=== PATIENT | female | born 1960 | race Two or more races ===

== ENCOUNTER 2024-03-07 08:12 | Outpatient (AMB) | payer MEDICAID, SELFPAY ==
[2024-03-07 08:28] VITALS: BP 168/85; PULSE 86; RESP 18; TEMP 36.7; O2SAT 96; BMI 31.5
--- NOTE | 2024-03-07 08:28 | PD.ORTHCLVIS ---
Vital signs 03/07/24 08:28 Height 1.6 m Height Method Stated Weight 80.796 kg Weight Measurement Method Standing Scale BMI 31.5 BP 168/85 H Blood Pressure Source Automatic Cuff Blood Pressure Location Right Upper Arm Position Sitting Respiration 18 Pulse 86 Pulse Source Monitor Temp 98.1 F Temp Source Oral Pulse Oximetry (%) 96 Oxygen Delivery Method Room Air Med/Allergies Allergies & Medications Allergies No Known Allergies Allergy (Mild, Uncoded 02/09/09 16:12) Subjective Visit Visit for: new patient Immunization / Flu Flu Vaccine in the Last 12 Months: No Flu Vaccine Exclusion Criteria: No Exclusion Criteria History of Present Illness Chief complaint: PT HERE FOR LEFT KNEE PAIN Shari is a pleasant 63-year-old female presents today for evaluation of her left knee. She has had pain for 4 months. She reports that she was found to have a Ibrahim's cyst as well as medial lateral meniscus tears. She tried physical therapy and this helped quite a bit. She was here because someone tried to drain her Ibrahim's cyst and failed. 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 Exam Exam Patient is in no acute distress and is cooperative with the examination today. Breathing is nonlabored. Patient has a normal mood and affect. Bilateral extremities were evaluated and demonstrates sensation intact to light touch. Palpable pedal pulses are present. No significant edema is present. Bilateral hips were examined. The patient has no pain with log roll of the hips. Internal rotation to 30 degrees and external rotation to 30 degrees is painless. Negative FADIR. Right knee was examined today. The right knee is in reasonable alignment. Range of motion from 0-120 degrees. Knee is stable to varus and valgus as well as AP translation with <5mm. Patient has a negative McMurrays. There is no pain with patellofemoral compression and no crepitus noted. The knee is nontender to palpation. Left knee was examined today. The left knee is in [varus] alignment. Range of motion from [0-115] degrees. Knee is stable to varus and valgus as well as AP translation with <5mm. Patient has a [negative] McMurrays. There is [no] pain with patellofemoral compression and [no] crepitus noted. The knee is [tender] to palpation [medially]. X-rays were not available to review. I can see her report which states there is no significant pathology or arthritis. Assessment and Plan Problem List (1) Pain in left knee: Status: Acute Plan: Patient is a 63-year-old female with left knee pain and a left knee meniscal tear that is degenerative as well as arthritis and a Ibrahim's cyst. We discussed the natural history of this in great detail. We recommend anti-inflammatories and nonoperative treatment for the Ibrahim's cyst as well as knee arthritis. Right now the pain is currently not bad. We discussed that we can do an injection if it gets worse. We will also start her on anti-inflammatories. 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
== END 2024-03-07 08:44 | disposition home or self-care (01) ==
LOC: HODSRG 08:12
PROVIDERS: PCP Internal Medicine; Referring Provider Internal Medicine; Supervising Provider Orthopaedic Surgery Adult Reconstructive Orthopaedic Surgery; Visit Provider Orthopaedic Surgery Adult Reconstructive Orthopaedic Surgery
DX: M25.562 Pain in left knee (principal); S83.207D Unspecified tear of unspecified meniscus, current injury, left knee, subsequent encounter; X58.XXXD Exposure to other specified factors, subsequent encounter; M17.12 Unilateral primary osteoarthritis, left knee; M71.22 Synovial cyst of popliteal space [Baker], left knee
CPT/HCPCS: 99203; G0463